=== PATIENT | male | born 1995 | race Caucasian/White ===

== ENCOUNTER 2018-08-03 13:50 | Emergency (ER) | payer SELFPAY ==
[2018-08-03 14:16] VITALS: BP 133/76
--- NOTE | 2018-08-03 14:53 | ED Physician Documentation ---
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 Tetanus is up-to-date.) Review of Systems Constitutional: reports: Reviewed and negative Eyes: reports: Reviewed and negative Ears: reports: Reviewed and negative PD PAST MEDICAL HISTORY - Past Medical History Past Medical History: No - Past Surgical History Past Surgical History: No - Social History Does the pt smoke?: Yes Smoking Status: Current every day smoker Does the pt drink ETOH?: Yes Does the pt have substance abuse?: No - Immunizations Immunizations are current?: Yes PD ED PE NORMAL - Vitals Vital signs reviewed: Yes - General General: Alert and oriented X 3, No acute distress - Extremities Extremities: Other (On the ulnar side of the tip of the right middle finger there is a shallow flap-like laceration that just goes a little bit into the nail. It is not gaping and its hemostatic.) - Neuro Neuro: Alert and oriented X 3, Normal speech Results - Vitals Vitals: Vital Signs - 24 hr 08/03/18 14:12 Temperature 36.5 C Heart Rate 73 Respiratory 16 Rate Blood Pressure 133/76 H O2 Saturation 99 Oxygen O2 Source Room air PD MEDICAL DECISION MAKING - ED course ED course: This is a 23-hour old fingertip laceration that would be borderline for suturing in the first place and given the time course conservative wound care was advised. Departure - Departure Disposition: 01 Home, Self Care Clinical Impression: Laceration Condition: Good Record reviewed to determine appropriate education?: Yes Instructions: ED Laceration Old Not Sutr Comments: Clean it with soap and water and keep it covered with a dressing. Return for signs of infection, specifically increased pain, redness, drainage, swelling, or fevers.
== END 2018-08-03 14:56 | disposition home or self-care (01) ==
LOC: ED 13:50
DX: S61.212A Laceration without foreign body of right middle finger without damage to nail, initial encounter (principal); W29.8XXA Contact with other powered hand tools and household machinery, initial encounter; Y93.G1 Activity, food preparation and clean up; Y99.0 Civilian activity done for income or pay; F17.200 Nicotine dependence, unspecified, uncomplicated
CPT/HCPCS: 99282; 99283

== ENCOUNTER 2020-03-12 13:00 | Outpatient (CLI) | payer SELFPAY | END 2020-03-12 13:01 | disposition home or self-care (01) | LOC: COV 13:00 | PROVIDERS: ATTEND Family Medicine | DX: Z20.828 Contact with and (suspected) exposure to other viral communicable diseases (principal) ==